=== PATIENT | male | born 1975 | race Caucasian/White ===

== ENCOUNTER 2017-05-17 09:01 | Emergency (ER) | payer OTHER ==
[2017-05-17] MEDS ORDERED: Ondansetron 4 MG/2 ML SDV IVPUSH ONE (09:32)
[2017-05-17] MEDS ORDERED: Sodium Chloride 0.9% 10 ML Syringe FLUSH PRN (09:32)
[2017-05-17] MEDS ORDERED: Famotidine 20 MG/2 ML SDV IVPUSH ONE (09:32)
[2017-05-17] MEDS ORDERED: Sodium Chloride 0.9% 1,000 ML IV SCH (09:45)
[2017-05-17] MEDS ORDERED: Ketorolac 30 MG/ML SDV IVPUSH SCH (09:45)
--- NOTE | 2017-05-17 09:45 | EDM.PDOC ---
ED HPI GENERAL MEDICAL PROBLEM - General Chief Complaint: Abdominal Pain Stated Complaint: ABDOMINAL PAIN Time Seen by Provider: 05/17/17 09:23 Source of Information: Reports: Patient, RN Notes Reviewed - History of Present Illness INITIAL COMMENTS - FREE TEXT/NARRATIVE: 41-year-old male with started with generalized achy abdominal pain about 7-10 days ago. Been fairly persistent but became much worse last evening after eating out at a [place] restaurant. One half hour after eating he then had severe watery diarrhea associated with a lot of pain and cramping. He's had no further diarrhea but is continued to have generalized abdominal pain and cramping through the remainder of the night. No fever or chills. There was no blood with the diarrhea. He is scared to eat this morning and therefore has not eaten. He has not been vomiting. Left Abdomen Pain Score (Numeric/FACES): 6 - Related Data Allergies Allergy/AdvReac Type Severity Reaction Status Date / Time No Known Allergies Allergy Verified 05/17/17 09:15 Home Meds: Home Meds Ciprofloxacin HCl [Cipro] 500 mg PO Q12HR #10 tablet 05/17/17 [Rx] Past Medical History - Past Health History Medical/Surgical History: Denies Medical/Surgical History Social & Family History - Tobacco Use Smoking Status *Q: Never Smoker - Caffeine Use Caffeine Use: Reports: Soda - Recreational Drug Use Recreational Drug Use: No ED ROS GENERAL - Review of Systems Review Of Systems: See Below Constitutional: Denies: Fever, Chills HEENT: Denies: Throat Pain Respiratory: Denies: Shortness of Breath Cardiovascular: Denies: Chest Pain GI/Abdominal: Reports: Abdominal Pain, Diarrhea, Decreased Appetite. Denies: Hematemesis, Hematochezia, Melena, Vomiting Musculoskeletal: Reports: No Symptoms Skin: Reports: No Symptoms Neurological: Reports: No Symptoms ED EXAM, GI/ABD - Physical Exam Exam: See Below General Appearance: Alert, Mild Distress Throat/Mouth: Normal Inspection, Normal Oropharynx Head: No: Facial Swelling Neck: Supple, Full Range of Motion Respiratory/Chest: No Respiratory Distress, Lungs Clear, Normal Breath Sounds Cardiovascular: Regular Rate, Rhythm GI/Abdominal Exam: Soft, Tender (Mild diffuse tenderness upper abdomen, lower abdomen nontender at this time). No: Guarding, Rebound Back Exam: No: CVA Tenderness (L), CVA Tenderness (R) Extremities: Normal Inspection, Normal Range of Motion Neurological: Alert, Oriented, No Motor/Sensory Deficits Skin Exam: Warm, Dry, Normal Color Course - Vital Signs Last Recorded V/S: Last Vital Signs Temp 97.1 F 05/17/17 09:07 Pulse 78 05/17/17 09:07 Resp 16 05/17/17 09:07 BP 133/85 05/17/17 09:07 Pulse Ox 97 05/17/17 09:07 - Orders/Labs/Meds Orders: Active Orders 24 hr Category Date Time Status Peripheral IV Care [RC] . DIRECTED Care 05/17/17 09:33 Active Ketorolac [Toradol] Med 05/17/17 09:45 Active 30 mg IVPUSH ONETIME Sodium Chloride 0.9% [Normal Saline] 1,000 ml Med 05/17/17 09:45 Active IV ONETIME Sodium Chloride 0.9% [Saline Flush] Med 05/17/17 09:32 Active 10 ml FLUSH ASDIRECTED PRN Peripheral IV Insertion Adult [OM.PC] Stat Oth 05/17/17 09:32 Ordered Medication Orders Sodium Chloride (Normal Saline) 1,000 mls @ 999 mls/hr IV ONETIME MARCO Last Admin: 05/17/17 09:40 Dose: 999 mls/hr Ketorolac Tromethamine (Toradol) 30 mg IVPUSH ONETIME MARCO Last Admin: 05/17/17 09:44 Dose: 30 mg Sodium Chloride (Saline Flush) 10 ml FLUSH ASDIRECTED PRN PRN Reason: Keep Vein Open Last Admin: 05/17/17 09:45 Dose: 10 ml Labs: Laboratory Tests 05/17/17 05/17/17 Range/Units 09:15 09:15 WBC 12.27 H (4.23-9.07) K/mm3 RBC 5.83 (4.63-6.08) M/mm3 Hgb 17.1 (13.7-17.5) gm/L Hct 49.4 (40.1-51.0) % MCV 84.7 (79.0-92.2) fl MCH 29.3 (25.7-32.2) pg MCHC 34.6 (32.2-35.5) g/dl RDW Std Deviation 41.0 (35.1-43.9) fL Plt Count 245 (163-337) K/mm3 MPV 9.9 (9.4-12.3) fl Neut % (Auto) 69.7 H (34.0-67.9) % Lymph % (Auto) 17.8 L (21.8-53.1) % Nash % (Auto) 10.2 (5.3-12.2) % Eos % (Auto) 1.6 (0.8-7.0) Baso % (Auto) 0.3 (0.1-1.2) % Neut # (Auto) 8.54 H (1.78-5.38) K/mm3 Lymph # (Auto) 2.19 (1.32-3.57) K/mm3 Nash # (Auto) 1.25 H (0.30-0.82) K/mm3 Eos # (Auto) 0.20 (0.04-0.54) K/mm3 Baso # (Auto) 0.04 (0.01-0.08) K/mm3 Sodium 138 (136-145) mEq/L Potassium 4.2 (3.5-5.1) mEq/L Chloride 103 (98-107) mEq/L Carbon Dioxide 25 (21-32) mEq/L Anion Gap 14.2 (5-15) BUN 12 (7-18) mg/dL Creatinine 1.0 (0.7-1.3) mg/dL Est Cr Clr Drug Dosing 118.14 mL/min Estimated GFR (MDRD) > 60 (>60) mL/min BUN/Creatinine Ratio 12.0 L (14-18) Glucose 130 H (74-106) mg/dL Calcium 9.1 (8.5-10.1) mg/dL Total Bilirubin 1.0 (0.2-1.0) mg/dL AST 32 (15-37) U/L ALT 64 H (16-63) U/L Alkaline Phosphatase 105 (46-116) U/L Total Protein 7.7 (6.4-8.2) g/dl Albumin 3.6 (3.4-5.0) g/dl Globulin 4.1 gm/dL Albumin/Globulin Ratio 0.9 L (1-2) Meds: Medications Generic Name Dose Route Start Last Admin Trade Name Freq PRN Reason Stop Dose Admin Sodium Chloride 1,000 mls @ 999 mls/hr 05/17/17 09:45 05/17/17 09:40 Normal Saline IV 999 mls/hr ONETIME MARCO Administration Ketorolac Tromethamine 30 mg 05/17/17 09:45 05/17/17 09:44 Toradol IVPUSH 30 mg ONETIME MARCO Administration Sodium Chloride 10 ml 05/17/17 09:32 05/17/17 09:45 Saline Flush FLUSH 10 ml ASDIRECTED PRN Administration Keep Vein Open Discontinued Medications Generic Name Dose Route Start Last Admin Trade Name Genet PRN Reason Stop Dose Admin Famotidine 20 mg 05/17/17 09:32 05/17/17 09:44 Pepcid IVPUSH 05/17/17 09:33 20 mg ONETIME ONE Administration Ondansetron HCl 4 mg 05/17/17 09:32 05/17/17 09:41 Zofran IVPUSH 05/17/17 09:33 4 mg ONETIME ONE Administration - Re-Assessments/Exams Free Text/Narrative Re-Assessment/Exam: 05/17/17 11:09. Labs are as documented. Given 1 L of normal saline, some IV Toradol Zofran and Pepcid. He is not been having further diarrhea while here in the ED but does continue to have annoying generalized discomfort. He does not have a surgical abdomen at this time. He is currently not nauseated or vomiting. We'll start him on Cipro 500 mg twice a day, probiotic clear liquids today and then to advance diet slowly as tolerated. Discharge instructions as documented. Departure - Departure Time of Disposition: 11:04 Disposition: Home, Self-Care 01 Condition: Fair Clinical Impression: Abdominal pain Qualifiers: Abdominal location: upper abdomen, unspecified Qualified Code(s): R10.10 - Upper abdominal pain, unspecified Diarrhea Qualifiers: Diarrhea type: unspecified type Qualified Code(s): R19.7 - Diarrhea, unspecified - Discharge Information Prescriptions: Ciprofloxacin HCl [Cipro] 500 mg PO Q12HR #10 tablet Referrals: PCP,None [Primary Care Provider] - Forms: ED Department Discharge, ED Return to Work/School Form Additional Instructions: Clear liquids until tomorrow as discussed, then very careful bland diet eating small amounts at a time only as tolerated. Cipro antibiotic 500 mg twice daily starting now. Also begin probiotic available OTC and take that 3 times daily for the next week. Follow up Clinic if not much better within 2-3 days as expected. Return to ED as needed if symptoms worsening in any way. - My Orders Last 24 Hours: My Active Orders 05/17/17 09:32 Sodium Chloride 0.9% [Saline Flush] 10 ml FLUSH ASDIRECTED PRN Peripheral IV Insertion Adult [OM.PC] Stat 05/17/17 09:33 Peripheral IV Care [RC] . DIRECTED 05/17/17 09:45 Ketorolac [Toradol] 30 mg IVPUSH ONETIME Sodium Chloride 0.9% [Normal Saline] 1,000 ml IV ONETIME - Assessment/Plan Last 24 Hours: My Active Orders 05/17/17 09:32 Sodium Chloride 0.9% [Saline Flush] 10 ml FLUSH ASDIRECTED PRN Peripheral IV Insertion Adult [OM.PC] Stat 05/17/17 09:33 Peripheral IV Care [RC] . DIRECTED 05/17/17 09:45 Ketorolac [Toradol] 30 mg IVPUSH ONETIME Sodium Chloride 0.9% [Normal Saline] 1,000 ml IV ONETIME
== END 2017-05-17 11:30 | disposition home or self-care (01) ==
LOC: JD.ED 09:01
DX: R10.10 Upper abdominal pain, unspecified (principal); R10.84 Generalized abdominal pain; R19.7 Diarrhea, unspecified
CPT/HCPCS: 36415; 80053; 85025; 96361; 96374; 96375; 99284; J1885; J2405; J7040; J7050